=== PATIENT | male | born 1955 | race Caucasian/White ===

== ENCOUNTER 2016-09-23 08:51 | Observation (INO) | payer OTHER ==
--- NOTE | 2016-09-23 09:10 | CPEKG ---
Heart Rate: 68 RR Interval: 882 P-R Interval: 156 QRSD Interval: 80 QT Interval: 408 QTC Interval: 434 P [place]: 0 QRS [place]: 46 T Wave [place]: 42 EKG Severity - ABNORMAL ECG - EKG Impression: SINUS RHYTHM EKG Impression: ST ELEVATION, PROBABLE LATERAL INJURY EKG Impression: BORDERLINE ST ELEVATION, INFERIOR LEADS Electronically Signed By: Erica Bentley 23-Sep-2016 16:20:44
[2016-09-23] MEDS ORDERED: ASPIRIN 325 MG TAB ONE (09:12)
[2016-09-23] MEDS ORDERED: NITROGLYCERIN 0.4 MG BTL SL ONE ×2 (09:12→09:16)
--- NOTE | 2016-09-23 09:13 | EDPHY ---
HPI/HX/ROS/PE/MDM Narrative: CHIEF COMPLAINT: Chest pain HISTORY OF PRESENT ILLNESS: The patient is a 60-year-old male presenting with chest pain and shortness of breath. The patient woke up around 3:30am with dyspnea and chest tightness. He tried to go back to sleep, but chest pain remained constant. His pain was a 10/10 during the night. It is now a 5/10. His pain is worse with deep inhalation. Worse when laying down. He denies associated nausea or diaphoresis. The patient has no cardiac history. He denies lower extremity pain or swelling. No fever, chills, vomiting, diarrhea, urinary complaints, lightheadedness. The patient has been training harder than usual on his bicycle this summer. He denies cardiac symptoms with exertion. REVIEW OF SYSTEMS: Aside from elements discussed in the HPI, a comprehensive 10-point review of systems was reviewed and is negative. PAST MEDICAL HISTORY: High cholesterol. SOCIAL HISTORY: . Non-cigarette smoker. Occasional marijuana use. VITAL SIGNS: Reviewed by me GENERAL: Well-developed, well-nourished, very uncomfortable appearing. Hurts to take a deep breath. HEENT: Atraumatic. Eyes: No icterus, no injection. Mouth: moist mucous membranes. No erythema or lesions. Neck: supple with no adenopathy. LUNGS: Clear to auscultation bilaterally, no wheezes, rhonchi or rales. CARDIAC: Regular rate and rhythm, no rubs, murmurs or gallops. ABDOMEN: Soft, nontender, nondistended, bowel sounds normal. BACK: No CVA tenderness. EXTREMITIES: No trauma. No edema. Range of motion is normal throughout. NEURO: Alert and oriented, grossly nonfocal. SKIN: Warm and dry, no rash. PSYCHIATRIC: Normal mentation, no agitation. Portions of this note were transcribed by a medical claims processor. I personally performed a history, physical exam, medical decision making, and confirmed accuracy of information the transcribed note. ED Course: 12-LEAD EKG: Please see the full report in [facility]. My interpretation: Concern for ST elevation [place]. Cardiac alert called. The patient received Nitro and Aspirin. 0910: Cardiac alert called. Dr. Peterson, Cardiology, is in the ED assessing the patient. 0915: Cardiac carpenter/labor is here. Patient's pain is a 2/10 after receiving Nitro. Patient will be taken to carpenter/labor immediately. MDM: After history and physical examination, the differential for chest pain was considered, including but not limited to, myocardial ischemia, acute coronary syndrome, pulmonary embolus, chest wall pain, pericarditis, pleural inflammation and pulmonary infectious causes. Critical care time spent by me, Dr. Bentley, exclusively with this patient was 25 minutes, exclusive of PA time and exclusive of procedures. The organ system at risk was cardiac and I obtained EKG, provided nitroglycerin and aspirin, activated carpenter/labor, consulted with cardiology, and transferred patient to the welfare adviser for immediant cardiac catherization to prevent worsening of the patients condition. - Data Points Imaging Results: CXR: Impression: No acute findings in the chest Imaging: I viewed and interpreted images myself Laboratory Results: Laboratory Results 09/23/16 09:10 09/23/16 09/23/16 09/23/16 09:10 09:10 09:10 WBC 13.51 10^3/uL H 10^3/uL (3.80-9.50) RBC 4.71 10^6/uL 10^6/uL (4.40-6.38) Hgb 15.4 g/dL g/dL (13.7-17.5) Hct 43.2 % % (40.0-51.0) MCV 91.7 fL fL (81.5-99.8) MCH 32.7 pg pg (27.9-34.1) MCHC 35.6 g/dL g/dL (32.4-36.7) RDW 11.9 % % (11.5-15.2) Plt Count 240 10^3/uL 10^3/uL (150-400) MPV 9.9 fL fL (8.7-11.7) Neut % (Auto) 79.1 % H % (39.3-74.2) Lymph % (Auto) 11.3 % L % (15.0-45.0) Chambers % (Auto) 8.7 % % (4.5-13.0) Eos % (Auto) 0.3 % L % (0.6-7.6) Baso % (Auto) 0.3 % % (0.3-1.7) Nucleat RBC Rel Count 0.0 % % (0.0-0.2) Absolute Neuts (auto) 10.69 10^3/uL H 10^3/uL (1.70-6.50) Absolute Lymphs (auto) 1.52 10^3/uL 10^3/uL (1.00-3.00) Absolute Monos (auto) 1.18 10^3/uL H 10^3/uL (0.30-0.80) Absolute Eos (auto) 0.04 10^3/uL 10^3/uL (0.03-0.40) Absolute Basos (auto) 0.04 10^3/uL 10^3/uL (0.02-0.10) Absolute Nucleated RBC 0.00 10^3/uL 10^3/uL (0-0.01) Immature Gran % 0.3 % % (0.0-1.1) Immature Gran # 0.04 10^3/uL 10^3/uL (0.00-0.10) PT Pending INR Pending APTT Pending Sodium Pending Potassium Pending Chloride Pending Carbon Dioxide Pending Anion Gap Pending BUN Pending Creatinine Pending Estimated GFR Pending Glucose Pending Calcium Pending Troponin I Pending Medications Given: Discontinued Medications Aspirin (Aspirin) 325 mg PO EDNOW ONE Stop: 09/23/16 09:16 Last Admin: 09/23/16 09:14 Dose: 325 mg Nitroglycerin (Nitrostat) 0.4 mg SL EDNOW ONE Stop: 09/23/16 09:17 Last Admin: 09/23/16 09:14 Dose: 1 tab General Time Seen by Provider: 09/23/16 09:08 Initial Vital Signs: Initial Vital Signs Temperature (C) 36.9 C 09/23/16 08:55 Heart Rate 69 09/23/16 08:55 Respiratory Rate 14 09/23/16 08:55 Blood Pressure 131/70 H 09/23/16 08:55 O2 Sat (%) 95 09/23/16 08:55 O2 Delivery Mode Nasal Cannula O2 (L/minute) 2 Allergies/Adverse Reactions: amoxicillin Allergy (Verified 09/23/16 08:54) Penicillins Allergy (Verified 09/23/16 08:54) Home Medications: Medication Instructions Recorded Fluticasone Nasal [Flonase Nasal 2 sprays EACHNARE DAILY PRN 09/23/16 [place]] Herbals/Supplements -Info Only 1 ea PO AD 09/23/16 Simvastatin [Zocor] 20 mg PO HS 09/23/16 Tamsulosin HCl [Flomax 0.4 MG (*)] 0.8 mg PO HS 09/23/16 Colchicine [Colchicine (*)] 0.6 mg PO DAILY #30 ea 09/24/16 Ibuprofen [Motrin (*)] 400 mg PO Q8 #0 tab 09/24/16 Departure - Departure Disposition: To OP Cath/Surgery Clinical Impression: Myocardial infarction Qualifiers: Myocardial infarction ST status: ST elevation myocardial infarction Involved coronary artery: unspecified coronary artery Qualified Code(s): I21.3 - ST elevation (STEMI) myocardial infarction of unspecified site Condition: Serious Report Scribed for: Erica Bentley Report Scribed by: Sherrill Osullivan Date of Report: 09/23/16 Time of Report: 09:16
[2016-09-23] MEDS ORDERED: ASPIRIN 325 MG TAB PO ONE (09:15)
[2016-09-23 09:21] LABS: % IMMATURE GRANULYOCYTES 0.3 % (0.0-1.1); ABSOLUTE IMMATURE GRANULOCYTES 0.04 10^3/uL (0.00-0.10); ADD DIFF? NO; ADD MORPH? NO; ADD SCAN? NO; ATYPICAL LYMPHOCYTE FLAG 10 (0-99); FRAGMENT RBC FLAG 0 (0-99); HEMATOCRIT 43.2 % (40.0-51.0); HEMOGLOBIN 15.4 g/dL (13.7-17.5); LEFT SHIFT FLG 0 (0-99); LIPEMIA HEMOLYSIS FLAG 90 (0-99); MEAN CELL HEMOGLOBIN 32.7 pg (27.9-34.1); MEAN CELL HEMOGLOBIN CONCENTR. 35.6 g/dL (32.4-36.7); MEAN CELL VOLUME 91.7 fL (81.5-99.8); MEAN PLATELET VOLUME 9.9 fL (8.7-11.7); PLATELET CLUMPS FLAG 0 (0-99); PLATELET COUNT 240 10^3/uL (150-400); RED BLOOD CELL COUNT 4.71 10^6/uL (4.40-6.38); RED CELL DISTRIBUTION WIDTH 11.9 % (11.5-15.2)
[2016-09-23 09:30] LABS: INR 1.08 (0.83-1.16); PROTIME(PATIENT) 13.9 SEC (12.0-15.0)
[2016-09-23 09:31] LABS: APTT 28.1 SEC (23.0-38.0)
[2016-09-23] MEDS ORDERED: EPINEPHrine 1 MG/10 ML SYR IVP ONE (09:32)
[2016-09-23] MEDS ORDERED: ATROPINE SULFATE 1 MG/10 ML SYR ONE (09:32)
[2016-09-23] MEDS ORDERED: BIVALIRUDIN 250 MG/5 ML VIAL IV ONE (09:33)
[2016-09-23] MEDS ORDERED: NITROGLYCERIN 1,500 MCG/15 ML VIAL MISC ONE (09:33)
[2016-09-23 09:38] LABS: ANION GAP 13 mEq/L (8-16); CALCIUM 9.9 mg/dL (8.5-10.4); CARBON DIOXIDE 23 mEq/l (22-31); CHLORIDE 104 mEq/L (97-110); CREATININE 0.9 mg/dL (0.7-1.3); GLOMERULAR FILTRATION RATE > 60; GLUCOSE 110 mg/dL (70-100); POTASSIUM 4.2 mEq/L (3.5-5.2); SODIUM 140 mEq/L (134-144)
[2016-09-23 09:48] LABS: TROPONIN I < 0.012 ng/mL (0.000-0.034)
--- NOTE | 2016-09-23 09:53 | GHP ---
[f rep st] HISTORY AND PHYSICAL DATE OF ADMISSION: 09/23/2016 REASON FOR ADMISSION: Anterolateral ST-segment elevation myocardial infarction. HISTORY: The patient is a 60-year-old male with a history of hyperlipidemia who awoke at approximately 4 o'clock in the morning with significant shortness of breath and chest tightness. He tried to get back to sleep, but continued to have difficulty. There was no associated nausea, or diaphoresis. His chest pressure escalated and his insisted that he come to the emergency room for evaluation. In the emergency room, he continues to have chest discomfort and his initial ECG demonstrates [address]-segment elevation in the precordial and inferior leads. PAST MEDICAL HISTORY: 1. Hyperlipidemia. 2. BPH. MEDICATIONS: 1. Simvastatin. 2. Tamsulosin. ALLERGIES: No known drug allergies. FAMILY HISTORY: Noncontributory. SOCIAL HISTORY: He is . His is with him in the emergency room today. He has never been a tobacco smoker. He does occasionally smoke marijuana. Alcohol consumption is not excessive. He exercises regularly. 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 REVIEW OF SYSTEMS: Apart from the symptoms that prompted this hospital encounter, a 10-point review was negative. PHYSICAL EXAM: VITAL SIGNS: Heart rate 80 with sinus rhythm on the monitor. Blood pressure 123/74. GENERAL: Well-developed, well-nourished male who appears to be in moderate discomfort. He is alert and oriented x3. HEAD AND NECK: No scleral icterus. Mucous membranes moist. Carotid pulses 2+ without bruits. There is no JVD. CHEST: Lung bauer clear to auscultation bilaterally. CARDIAC: Regular rate and rhythm with normal S1 and S2. There is no murmur or gallop. ABDOMEN: Soft, nontender, nondistended with normal bowel sounds. EXTREMITIES: 2+ pulses and no peripheral edema. LABORATORY STUDIES: Pending at the time of this dictation. IMAGING: Chest x-ray: No widening at the mediastinum. Normal cardiac silhouette. No infiltrates or effusions. IMPRESSION: This is a 60-year-old male who presents with symptoms consistent with coronary ischemia and somewhat diffuse ST-segment elevation. He is hemodynamically stable without evidence for arrhythmias or congestive heart failure. PLAN: Preparations are underway to take the patient emergently to the cardiac manager cath lab for diagnostic angiography and probable percutaneous coronary intervention. Further diagnostic and therapeutic decisions await the outcome of that study. Expect that he will require a greater than 2 midnight hospital stay. /[id number]/MODL CUCO
[2016-09-23] MEDS ORDERED: ONDANSETRON 4 MG/2 ML VIAL IVP PRN (09:56)
[2016-09-23] MEDS ORDERED: ACETAMINOPHEN 325 MG TAB PO PRN (09:56)
[2016-09-23] MEDS ORDERED: HYDROCODONE/APAP 5/325 TAB PO PRN (09:56)
[2016-09-23] MEDS ORDERED: ATROPINE SULFATE 1 MG/10 ML SYR IVP PRN (09:56)
[2016-09-23] MEDS ORDERED: LIDOCAINE 1% 300 MG/30 ML SDV ONE (10:00)
[2016-09-23] MEDS ORDERED: NS 1,000 ML IV SCH (10:00)
[2016-09-23] MEDS ORDERED: fentaNYL 100 MCG/2 ML INJ ONE ×2 (10:00→10:03)
[2016-09-23] MEDS ORDERED: MIDAZOLAM 2 MG/2 ML VIAL ONE ×2 (10:00→10:04)
[2016-09-23] MEDS ORDERED: IOPAMIDOL (ISOVUE-370) 150 ML BTL IV ONE (10:01)
[2016-09-23] MEDS ORDERED: KETOROLAC 30 MG/1 ML SDV IVP ONE (10:06)
[2016-09-23] MEDS ORDERED: IOPAMIDOL (ISOVUE 370) 100 ML BTL IV ONE (10:11)
--- NOTE | 2016-09-23 10:14 | PDDXCAT ---
Diagnostic Cath Note - . Date: 09/23/16 Investigative Analyst: Nicholas Indication: other (Chest pain and abnormal ECG (cardaic alert)) - Procedure Access: right groin Procedure: left heart catheterization, coronary angiography, left ventriculogram - Materials Left Heart Cath size: 6F Left Heart Cath materials: standard multipack (JL4, JR4, pigtail) - Findings-Left Heart Catheterization LM: Normal. LAD: Mild irregularities. LCX: Mild to moderate irregularities. RCA: Mild to moderate irregularities. EDP: 24 mmHg LVEF: 60% Wall motion: Normal Complications: None Estimated blood loss: <50ml Closure method: Angioseal Assessment: 1) Normal LV systolic function. 2) Qjv-sagx-[id number] coronary atherosclerosis. Patient Problems: Problems Problem Status Onset Myocardial infarction Acute
[2016-09-23 10:32] LABS: C-REACTIVE PROTEIN 14.9 mg/L (<10.0); CHOLESTEROL 138 mg/dL (140-220); CHOLESTEROL/HDL RATIO 2.19 RATIO (1.00-4.97); HIGH DENSITY LIPOPROTEIN 63 mg/dL (40-65); LDL/HDL RATIO 0.87 RATIO (1.00-3.64); LOW DENSITY LIPOPROTEIN 55 mg/dL (80-100); NON-HIGH DENSITY LIPOPROTEIN 75 mg/dL (90-129); TRIGLYCERIDE 103 mg/dL (40-150); VERY LOW DENSITY LIPOPROTEINS 20 mg/dL (8-25)
[2016-09-23 12:16] LABS: HEMATOCRIT 43.8 % (40.0-51.0)
[2016-09-23] MEDS ORDERED: IBUPROFEN 800 MG TAB PO SCH (14:00)
--- NOTE | 2016-09-23 14:27 | ECHO ---
[id number] + + [id number] : : [place] [address] : : [phone] + + Adult Echocardiographic Report + ------+ :Name: PHONG JAMES MStudy Date: 09/23/2016 12:51 PM : : Hospital Admission Number: [id number] Locatio n: 246: :: 1955 Gender: Male Height: 68 in : :Age: 60 yrs Race: WH Weight: 170 lb : :Reason For Study: Chest pain : : BSA: 1.9 meters 2 : :History: No previous : + ------+ MMode/2D Measurements \T\ Calculations IVSd: 0.91 cm LVIDd: 4.4 cm FS: 37.7 % LVOT diam: 2.1 cm LVPWd: 0.92 cm LVIDs: 2.7 cm EDV(Teich): LVOT area: 88.4 ml 3.5 cm2 ESV(Teich): 28.3 ml EF(Teich): 68.0 % LVLd ap4: 8.1 cm SV(MOD-sp4): EDV(MOD-sp4): 60.0 ml 90.0 ml LVLs ap4: 7.1 cm ESV(MOD-sp4): 30.0 ml EF(MOD-sp4): 66.7 % Normal Measurement Values: + + :LVIDd (3.5-5.7cm) IVSd (0.6-1.1cm) LVPWd (0.6-1.1cm) Aortic Root (2.0-3.7cm)Left Atrium (1.5-4.0cm): :LV Vol(d) (76-115ml) LV Vol(s) (29-48ml) Ejec Fraction (50-65%)PV Derek (0.6- 1.2m/s) TV Derek (0.4-1.0m/s) : :MV E Derek (0.8-1.0m/s)MV A Derek (0.3-1.0m/s)LVOT Derek (0.7-1.2m/s) Asc Ao Derek ( 0.9-1.8m/s) : + + Doppler Measurements \T\ Calculations MV E max derek: MV V2 mean: Ao mean PG: LV V1 max: 105.6 cm/sec 61.5 cm/sec 2.7 mmHg 102.2 cm/sec MV A max derek: MV mean PG: Ao V2 mean: LV V1 max P.9 cm/sec 1.7 mmHg 75.4 cm/sec 4.2 mmHg MV E/A: 1.3 MV V2 VTI: 35.7 cmAo V2 VTI: 23.4 cmLV V1 mean PG: MV dec time: MVA(VTI): 2.1 cm2 FRAN(I,D): 3.2 cm2 1.8 mmHg 0.19 sec LV V1 mean: 62.3 cm/sec LV V1 VTI: 21.3 cm SV(LVOT): 74.8 ml PA V2 max: RAP systole: 83.0 cm/sec 10.0 mmHg PA max P.8 mmHg Left Ventricle The left ventricle is normal in size and function. There is normal left ventricular wall thickness. Ejection Fraction = 65%. No regional wall motion abnormalities noted. Right Ventricle The right ventricle is normal in size and function. Atria The left atrial size is normal. Right atrial size is normal. The interatrial septum is intact with no evidence for an atrial septal defect. Mitral Valve The mitral valve is normal in structure and function. There is no mitral valve stenosis. There is trace to mild mitral regurgitation. Tricuspid Valve The tricuspid valve is normal in structure and function. There is no tricuspid stenosis. No tricuspid regurgitation. Aortic Valve The aortic valve is normal in structure and function. There is no aortic stenosis. There is no aortic insufficiency. Pulmonic Valve The pulmonic valve is not well visualized. There is no pulmonic valvular regurgitation. Great Vessels The aortic root is normal size. Pericardium/Pleural There is no pericardial effusion. Conclusion A complete two-dimensional transthoracic echocardiogram was performed (2D, M-mode, Doppler and color flow Doppler). The left ventricle is normal in size and function. Ejection Fraction = 65%. No regional wall motion abnormalities noted. Normal appearing valvular structures. There is trace to mild mitral regurgitation. There is no pericardial effusion. Final Reading Physician: Jose Temple signed on 09/23/2016 02:25 PM Ordering Physician: Julio Peterson Performed By: Shanel Chapa
[2016-09-23] MEDS: IBUPROFEN 200 MG TAB PO SCH (14:44)
[2016-09-24] MEDS: IBUPROFEN 200 MG TAB PO SCH ×2 (00:23→08:09)
[2016-09-24 08:24] VITALS: BP 143/65; PULSE 64; RESP 18; TEMP 98.5; O2SAT 92
--- NOTE | 2016-09-24 10:34 | CPEKG ---
Heart Rate: 63 RR Interval: 952 P-R Interval: 152 QRSD Interval: 94 QT Interval: 412 QTC Interval: 422 P [place]: -52 QRS [place]: 53 T Wave [place]: 33 EKG Severity - ABNORMAL ECG - EKG Impression: SINUS OR ECTOPIC ATRIAL RHYTHM EKG Impression: ST ELEVATION SUGGESTS PERICARDITIS EKG Impression: ST ELEVATION WAS NOTED ON PRIOR ECG WELL Electronically Signed By: Manpreet Wilson 25-Sep-2016 15:43:27
[2016-09-24] MEDS ORDERED: IBUPROFEN 200 MG TAB PO SCH (11:56)
[2016-09-24] MEDS ORDERED: COLCHICINE 0.6 MG CAP/TAB PO SCH (12:00)
--- NOTE | 2016-09-24 12:32 | GDS ---
[f rep st] DISCHARGE SUMMARY REASON FOR ADMISSION: Pericarditis. HOSPITAL COURSE: Please refer to my previously dictated history and physical and cardiac dental laboratory assistant r valentinart. Briefly, the patient is a 60-year-old male with a history of hyperlipidemia but no prior cardiac his tory. He presented to the emergency room with 2-3 hours of chest discomfort. Described as a pressu re associated with difficulty taking a deep breath. In the emergency room, his ECG demonstrated ST- segment elevation in the inferior and precordial leads. He was taken to the cardiac dental laboratory assistant as a p ossible ST-elevation myocardial infarction. His catheterization demonstrated normal left ventricula r systolic function and non-flow limiting CAD. Following his catheterization, additional laboratory tests were requested which included a D-dimer, erythrocyte sedimentation rate, and C-reactive protein. His D-dimer and sedimentation rate were nor mal. His C-reactive protein was elevated at 14.9. Of note, when the patient was moved from the [facility] to the dental laboratory assistant table and asked to lie supine, he reported that his chest discomfort escalated s ignificantly, consistent with pericarditis. The patient was started on nonsteroidal anti-inflammatory agents. This morning, he states that he f eels much better. He has some mild residual discomfort in his left shoulder. Serial troponin level s were normal. He continues to demonstrate mild, somewhat diffuse ST-segment elevation on his EKG. An echocardiogram demonstrated normal left ventricular systolic function, no valvular heart disease , and no pericardial effusion. His lipid panel demonstrated a total cholesterol of 138 with HDL 63, LDL 55, and triglycerides 103. RECOMMENDATIONS AND DISPOSITION: The patient is discharged in stable condition. He will continue w ith ibuprofen 400 mg every 8 hours for 3-5 days until he has no residual discomfort. He will still start colchicine 0.6 mg daily with the plan to continue that for 3-6 months. He will continue his u sual simvastatin and tamsulosin. If the office staff at [facility] will contact him to arrange a followup appointment with me in 2-3 weeks. He should continue with his usual heart healthy diet an d exercise habits. DISCHARGE DIAGNOSES: 1. Acute pericarditis. 2. Iwq-hmzj-eodpfkhu coronary artery disease. 3. Hyperlipidemia (well controlled). /[id number]/MODL
[2016-09-24] MEDS ORDERED: NON-FORMULARY NEW DRUG (Simvastatin [Zocor] 20 MG) PO SCH (21:00)
[2016-09-24] MEDS ORDERED: ATORVASTATIN CALCIUM 10 MG TAB PO SCH (21:00)
[2016-09-24] MEDS ORDERED: TAMSULOSIN HCL 0.4 MG CAP PO SCH (21:00)
== END 2016-09-24 12:17 | disposition home or self-care (01) ==
LOC: INTOOBSV 09:24 → F2N 10:48 → F2W 17:08
PROVIDERS: ADMIT Internal Medicine Interventional Cardiology; ATTEND Internal Medicine Interventional Cardiology
PROC: 4A023N7 Measurement of Cardiac Sampling and Pressure, Left Heart, Percutaneous Approach (ICD-10-PCS; principal; 2016-09-23)
PROC: B2111ZZ Fluoroscopy of Multiple Coronary Arteries using Low Osmolar Contrast (ICD-10-PCS; principal; 2016-09-23)
PROC: B2151ZZ Fluoroscopy of Left Heart using Low Osmolar Contrast (ICD-10-PCS; principal; 2016-09-23)
DX: I30.9 Acute pericarditis, unspecified (principal); R94.31 Abnormal electrocardiogram [ECG] [EKG]; I25.10 Atherosclerotic heart disease of native coronary artery without angina pectoris; E78.5 Hyperlipidemia, unspecified; N40.0 Benign prostatic hyperplasia without lower urinary tract symptoms; Z88.0 Allergy status to penicillin
CPT/HCPCS: 71010; 71275; 93005; 93306; 93458; G0378; C1760; J0461; J0583; J1200; J1644; J1885; J2250; J3010; Q9967